=== PATIENT | female | born 1975 | race Caucasian/White ===

== ENCOUNTER 2021-01-07 12:35 | Outpatient (CLI) | payer BC | END 2021-01-07 12:36 | disposition home or self-care (01) | LOC: CSHMAMMO 12:35 | PROVIDERS: ATTEND Family Medicine | DX: Z12.31 Encounter for screening mammogram for malignant neoplasm of breast (principal) | CPT/HCPCS: G0279 ==

== ENCOUNTER 2024-06-02 13:08 | Outpatient (CLI) | payer BC | END 2024-06-02 13:09 | disposition home or self-care (01) | LOC: CSHRAD 13:08 | PROVIDERS: ATTEND Nurse Practitioner Family | DX: R06.02 Shortness of breath (principal); R06.2 Wheezing; R50.9 Fever, unspecified | CPT/HCPCS: 71046 ==

== ENCOUNTER 2025-02-21 15:17 | Outpatient (CLI) | payer BC | END 2025-02-21 15:18 | disposition home or self-care (01) | LOC: CSHMAMMO 15:17 | PROVIDERS: ATTEND Obstetrics & Gynecology | DX: Z12.31 Encounter for screening mammogram for malignant neoplasm of breast (principal) | CPT/HCPCS: 77063; 77067 ==